=== PATIENT | male | born 1950 ===

== ENCOUNTER 2017-02-03 09:06 | Emergency (ER) | payer BC ==
[2017-02-03 09:15] VITALS: BP 98/51
--- NOTE | 2017-02-03 09:43 | UC ---
Respiratory Complaint HPI - HPI Summary HPI Summary: 3 DAYS OF COUGH, CARRION, SINUS PRESSURE. NO FEVER, NASAL DRAINAGE, N/V/D. - History of Current Complaint Chief Complaint: UCRespiratory Stated Complaint: COUGH HEADACHE SINUS ISSUE Time Seen by Provider: 02/03/17 09:33 Hx Obtained From: Patient Onset/Duration: Gradual Onset, Lasting Days, Still Present Timing: Constant Severity Initially: Mild Severity Currently: Mild Pain Intensity: 2 Pain Scale Used: 0-10 Numeric Character: Cough: Nonproductive Aggravating Factors: Nothing Alleviating Factors: Nothing Associated Signs And Symptoms: Positive: URI, Sinus Discomfort. Negative: Dyspnea, Fever, Chills, Wheezing - Allergies/Home Medications Allergies/Adverse Reactions: Allergies Allergy/AdvReac Type Severity Reaction Status Date / Time No Known Allergies Allergy Verified 02/03/17 09:13 PMH/Surg Hx/FS Hx/Imm Hx Other GI/ History: BPH - Surgical History Surgical History: Yes Surgery Procedure, Year, and Place: hernia repair 1951, detatched retna 1975, rt knee cartalage removal 1979, wizdom teeth extraction 1981, cataract surgery L eye 2015. - Family History Known Family History: Positive: Hypertension - Social History Alcohol Use: Weekly Substance Use Type: None Smoking Status (MU): Never Smoked Tobacco - Immunization History Most Recent Influenza Vaccination: 2016 Most Recent Pneumonia Vaccination: 2016 states had 2nd one. Review of Systems Constitutional: Negative ENT: Negative Respiratory: Cough Cardiovascular: Negative Gastrointestinal: Negative Neurological: Headache All Other Systems Reviewed And Are Negative: Yes Physical Exam Triage Information Reviewed: Yes Appearance: Well-Appearing, No Pain Distress, Well-Nourished Vital Signs: Initial Vital Signs Temp 98.2 F 02/03/17 09:14 Pulse 91 02/03/17 09:14 Resp 16 02/03/17 09:14 BP 98/51 02/03/17 09:14 Pulse Ox 99 02/03/17 09:14 Vital Signs Reviewed: Yes Eyes: Positive: Conjunctiva Clear ENT: Positive: Hearing grossly normal, Pharynx normal, TMs normal Neck: Positive: Supple, Nontender, No Lymphadenopathy Respiratory Exam: Normal Cardiovascular Exam: Normal Abdomen Description: Positive: Soft Musculoskeletal: Positive: No Edema Neurological: Positive: Alert Psychological: Positive: Age Appropriate Behavior Skin: Negative: rashes UC Diagnostic Evaluation - Laboratory O2 Sat by Pulse Oximetry: 99 Respiratory Course/Dx - Differential Dx/Diagnosis Provider Diagnoses: ACUTE URI Discharge - Discharge Plan Condition: Stable Disposition: HOME Patient Education Materials: Upper Respiratory Infection (ED) Referrals: Vega Walker MD [Primary Care Provider] - If Needed Additional Instructions: ACUTE UPPER RESPIRATORY INFECTION The common cold is a benign self-limited syndrome representing a group of diseases caused by members of several families of viruses. It is the most frequent acute illness in the [place] and throughout the industrialized world. The term "common cold" refers to a mild upper respiratory viral infection involving, to variable degrees, nasal congestion and discharge ( rhinorrhea), sneezing, sore throat, cough, low-grade fever, headache, and malaise. Symptomatic therapy remains the mainstay of common cold treatment. In the absence of convincing evidence of a secondary bacterial infection, antibiotics are not effective in the treatment of the common cold and should not be prescribed. Be advised that the usual course and duration of illness is up to one and a half weeks for patients with a cold, but can last slightly longer; symptoms usually persist longer in smokers. IF YOU ARE NOT IMPROVING OVER THE NEXT SEVERAL DAYS PLEASE CALL ME HERE AND I CAN FOLLOW-UP WITH YOU BY PHONE. I WILL BE HERE ON WED (7A-2:30P), FRI (7A-2:30P ), SAT (7A-2:30P) AND SUN (7A-2:30P)
== END 2017-02-03 09:54 | disposition home or self-care (01) ==
LOC: UCEAST 09:06
DX: J06.9 Acute upper respiratory infection, unspecified (principal)
CPT/HCPCS: 99211; G0463